=== PATIENT | female | born 1955 | race Hispanic/Latino ===

== ENCOUNTER 2021-10-26 14:52 | Emergency (ER) | payer OTHER ==
--- NOTE | 2021-10-26 15:35 | Event Note ---
ED Screening Note ED Screening Note: SENT BY DR [place] AT [facility] FOR LOW NA PMH CIG SMOKER; DENIES ETOH OR DRUGS GERD COPD HTN HLD HOME RX OMEPRAZOLE SPIRIVA STATIN BENZONATRATE EZETINIBE GUAF CLONIDINE LOSARTAN COREG NIFEDIPINE PT DENIES ANY SYMPTOMS HER LABS WERE CHECKED PER ROUTINE A WHILE BACK AND NA WAS LOW SHE HAD A RECHECK THIS WEEK AND IT WAS LOWER SO THEY SENT HER TO ER TO BE EVALUATED This initial assessment/diagnostic orders/clinical plan/treatment(s) is/are subject to change based on patients health status, clinical progression and re- assessment by fellow clinical providers in the ED. Further treatment and workup at subsequent clinical providers discretion. Patient/guardian urged not to elope from the ED as their condition may be serious if not clinically assessed and managed. Initial orders include: LABS
[2021-10-26 15:58] LABS: Basophils # (Auto) 0.1 K/mm3 (0.0-0.1); Basophils % (Auto) 1.1 % (0.0-1.8); Eosinophils # (Auto) 0.4 K/mm3 (0.0-0.4); Eosinophils % (Auto) 4.7 % (0.0-4.3); Hematocrit 41.6 % (30.3-42.9); Hemoglobin 14.2 gm/dl (10.1-14.3); Lymphocytes # (Auto) 2.5 K/mm3 (1.2-5.4); Lymphocytes % (Auto) 27.1 % (13.4-35.0); Mean Corpuscular HGB Conc 34 % (30-34); Mean Corpuscular Volume 94 fl (79-97); Monocytes # (Auto) 0.6 K/mm3 (0.0-0.8); Monocytes % (Auto) 6.7 % (0.0-7.3); Platelet Count 423 K/mm3 (140-440); Red Blood Count 4.42 M/mm3 (3.65-5.03); Red Cell Distribution Width 13.3 % (13.2-15.2)
[2021-10-26] MEDS ORDERED: cloNIDine 0.2 MG TAB PO ONE (16:09)
[2021-10-26 16:21] LABS: Alanine Aminotransferase 10 units/L (7-56); Albumin 4.5 g/dL (3.9-5); Blood Urea Nitrogen 10 mg/dL (7-17); Calcium 9.4 mg/dL (8.4-10.2); Hemolysis Index 9
--- NOTE | 2021-10-26 16:21 | Emergency Department Report ---
HPI - General Chief Complaint: Recheck/Abnormal Lab/Rx Time Seen by Provider: 10/26/21 15:35 - HPI HPI: Room 36 Patient is a 66-year-old female present with a chief complaint of hyponatremia. Patient states her primary physician had routine blood work drawn approximate 2 weeks ago she states she was told her sodium was low. The patient came in for r epeat test yesterday and received a call today stating that her sodium was in the lower that she should come to the emergency department. No paperwork was sent with the patient the patient states her last sodium was in the 130s. Patient denies complaints stating she feels "pretty good." ED Past Medical Hx - Past Medical History Hx Hypertension: Yes Hx COPD: Yes (No home O2) - Surgical History Additional Surgical History: Cardiac catheterization - Family History Family history: no significant - Social History Smoking Status: Never Smoker Substance Use Type: None (Denies illicit drug use) ED Review of Systems ROS: Stated complaint: ABN LABS Other details as noted in HPI Constitutional: no symptoms reported Eyes: denies: eye pain ENT: denies: throat pain Respiratory: no symptoms reported Cardiovascular: denies: chest pain Endocrine: no symptoms reported Gastrointestinal: denies: abdominal pain Musculoskeletal: denies: back pain Neurological: denies: headache Physical Exam - Physical Exam Vital Signs: Vital Signs 10/26/21 14:56 Temperature 98.5 F Pulse Rate 78 Respiratory 20 Rate Blood Pressure 198/106 [Right] O2 Sat by Pulse 97 Oximetry Vital Signs 10/26/21 10/26/21 14:56 16:41 Temperature 98.5 F Pulse Rate 78 78 Respiratory 20 16 Rate Blood Pressure 198/106 157/87 [Right] O2 Sat by Pulse 97 97 Oximetry Physical Exam: GENERAL: The patient is well-developed well-nourished female lying on stretcher not appearing to be in acute distress. [] HEENT: Normocephalic. Atraumatic. Extraocular motions are intact. Patient has moist mucous membranes. NECK: Supple. No meningitic signs are noted. Trachea midline CHEST/LUNGS: Clear to auscultation. There is no respiratory distress noted. HEART/CARDIOVASCULAR: Regular. There is no tachycardia. There is no gallop rub or murmur. ABDOMEN: Abdomen is soft, nontender. Patient has normal bowel sounds. There is no abdominal distention. SKIN: There is no rash. There is no edema. There is no diaphoresis. NEURO: The patient is awake, alert, and oriented. The patient is cooperative. The patient has no focal neurologic deficits. The patient has normal speech. Cranial nerves II through XII grossly intact. GCS 15 MUSCULOSKELETAL: There is no evidence of acute injury. ED Course Vital Signs 10/26/21 14:56 Temperature 98.5 F Pulse Rate 78 Respiratory 20 Rate Blood Pressure 198/106 [Right] O2 Sat by Pulse 97 Oximetry ED Medical Decision Making - Lab Data Result diagrams: 10/26/21 15:46 10/26/21 15:46 Laboratory Tests 10/26/21 10/26/21 10/26/21 15:46 15:46 15:46 WBC 9.1 RBC 4.42 Hgb 14.2 Hct 41.6 MCV 94 MCH 32 MCHC 34 RDW 13.3 Plt Count 423 Lymph % (Auto) 27.1 [place] % (Auto) 6.7 Eos % (Auto) 4.7 H Baso % (Auto) 1.1 Lymph # (Auto) 2.5 [place] # (Auto) 0.6 Eos # (Auto) 0.4 Baso # (Auto) 0.1 Seg Neutrophils % 60.4 Seg Neutrophils # 5.5 Sodium 128 L Potassium 4.1 Chloride 88.7 L Carbon Dioxide 25 Anion Gap 18 BUN 10 Creatinine 0.6 Estimated GFR > 60 BUN/Creatinine Ratio 17 Glucose 107 H Calcium 9.4 Phosphorus 3.20 Magnesium 2.00 Total Bilirubin 0.20 AST 17 ALT 10 Alkaline Phosphatase 102 NT-Pro-B Natriuret Pep 196.2 Total Protein 7.3 Albumin 4.5 Albumin/Globulin Ratio 1.6 - Differential Diagnosis Hyponatremia Critical care attestation.: If time is entered above; I have spent that time in minutes in the direct care of this critically ill patient, excluding procedure time. ED Disposition Clinical Impression: Hyponatremia Disposition: 01 HOME / SELF CARE / HOMELESS Is pt being admited?: No Does the pt Need Aspirin: No Condition: Stable Additional Instructions: Return to the emergency department should you develop worsening symptoms, inability to tolerate food or liquids, high fever or any other concerns Referrals: PRIMARY MD BARBARA [Primary Care Provider] - 3-5 Days Time of Disposition: 18:07
[2021-10-26 16:28] LABS: BUN/Creatinine Ratio 17
[2021-10-26] MEDS ORDERED: SODIUM CHLORIDE 0.9% 1000 ML 1,000 ML IV ONE ×2 (16:53→17:09)
[2021-10-26 19:51] VITALS: BP 148/70
== END 2021-10-26 19:50 | disposition home or self-care (01) ==
LOC: ED 14:52
DX: E87.1 Hypo-osmolality and hyponatremia (principal); I10 Essential (primary) hypertension; J44.9 Chronic obstructive pulmonary disease, unspecified; Z88.5 Allergy status to narcotic agent; Z79.899 Other long term (current) drug therapy
CPT/HCPCS: 36415; 80053; 83735; 83880; 84100; 85025; 96360; 99283; J7030; Q0162